=== PATIENT | male | born 1980 | race Caucasian/White ===

== ENCOUNTER 2016-12-29 09:49 | Emergency (ER) | payer OTHER ==
[2016-12-29] MEDS ORDERED: KETOROLAC TROMETHAMINE 60 MG/2 ML VIAL IM ONE ×2 (10:11→10:33)
[2016-12-29] MEDS ORDERED: ORPHENADRINE CITRATE 30 MG/ML VIAL IM ONE (10:11)
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
[2016-12-29] MEDS ORDERED: ORPHENADRINE CITRATE 30 MG/ML VIAL ONE (10:33)
[2016-12-29 11:34] VITALS: BP 133/82
== END 2016-12-29 11:29 | disposition home or self-care (01) ==
LOC: ER 09:49
DX: S22.31XA Fracture of one rib, right side, initial encounter for closed fracture (principal); Y04.0XXA Assault by unarmed brawl or fight, initial encounter

== ENCOUNTER 2017-01-16 09:18 | Emergency (ER) | payer OTHER ==
[2017-01-16 09:54] VITALS: BP 144/80
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
== END 2017-01-16 09:59 | disposition home or self-care (01) ==
LOC: ER 09:18
PROC: 0H98XZZ Drainage of Buttock Skin, External Approach (ICD-10-PCS; principal; 2017-01-16)
DX: L05.91 Pilonidal cyst without abscess (principal); F17.200 Nicotine dependence, unspecified, uncomplicated